=== PATIENT | female | born 1950 | race Caucasian/White ===

== ENCOUNTER → 2016-11-25 | Outpatient (CLI) | payer MEDICARE ==
[~2016-11-25] MED LIST: DIFL0.0512 LEFT EYE; HYDR-755 PO; LAMO25TA PO; NEPA0.3D LEFT EYE; OCUF0.3D LEFT EYE; SERO25TA PO; SERO50TA PO; TRAZ100T6 PO; VENL100T PO; VIGA0.5D LEFT EYE
[2016-11-25 13:59] LABS: BASOPHIL % 0.8 % (0.0-2.0); EOSINOPHIL # 0.3 TH/MM3 (0-0.4); EOSINOPHIL % 4.9 % (0.0-4.0); HEMATOCRIT 35.2 % (35.0-46.0); HEMO FLAGS DIFF FINAL; LYMPH % 31.7 % (9.0-44.0); LYMPHOCYTE # 1.6 TH/MM3 (1.0-4.8); MEAN CELL VOLUME 89.6 FL (80.0-100.0); MEAN CORPUSCULAR HEMOGLOBIN 29.9 PG (27.0-34.0); MEAN CORPUSCULAR HGB CONC 33.3 % (32.0-36.0); MONO % 5.8 % (0.0-8.0); NEUT % 56.8 % (16.0-70.0); PLATELET COUNT 207 TH/MM3 (150-450); RED BLOOD COUNT 3.93 MIL/MM3 (4.00-5.30); RED CELL DISTRIBUTION WIDTH 13.1 % (11.6-17.2); WHITE BLOOD COUNT 5.2 TH/MM3 (4.0-11.0)
--- NOTE | 2016-11-25 15:14 | EKG ---
Date Performed: 11/25/2016 Time Performed: 13:47:37 PTAGE: 66 years EKG: Sinus rhythm NORMAL ECG NO PREVIOUS TRACING DOCTOR: Danny Mejia Interpretating Date/Time 11/25/2016 15:13:14
== END ==
LOC: PHPRE 13:14
PROVIDERS: ATTEND Ophthalmology
DX: Z01.812 Encounter for preprocedural laboratory examination (principal); Z01.810 Encounter for preprocedural cardiovascular examination; H25.042 Posterior subcapsular polar age-related cataract, left eye
CPT/HCPCS: 36415; 85025; 93005

== ENCOUNTER → 2016-12-07 | Day surgery (SDC) | payer MEDICARE ==
[~2016-12-07] VITALS: Ht 160 cm; Wt 52.5 kg
[~2016-12-07] MED LIST changes: +CHLORHEXIDINE GLUCONATE 2 % 1 PACK (2 CLOTHS) TOPICAL PRN; +HYALURONIDASE/LIDOCAINE/EPINEPHRINE/BUPIVACAINE 4.5 ML SYR LEFT EYE ONE; +HYALURONIDASE/LIDOCAINE/EPINEPHRINE/BUPIVACAINE 4.5 ML SYR ONE; +HYALURONIDASE/LIDOCAINE/EPINEPHRINE/BUPIVACAINE 6 ML SYR LEFT EYE ONE; +HYALURONIDASE/LIDOCAINE/EPINEPHRINE/BUPIVACAINE 6 ML SYR ONE; +INSULIN HUMAN REGULAR 1,000 UNITS/10 ML VIAL SQ PRN; +LACTATED RINGER'S 1000 ML IV PRN; +METOPROLOL TARTRATE 25 MG TAB PO PRN; +POVIDONE IODINE 5% (ANTISEPSIS KIT) 4 APPLICATIONS EACH NARE PRN; +PROPOFOL 200 MG/20 ML AMP ONE; +SODIUM CHLORID 0.9% 500 ML IV PRN; +TOBRAMYCIN/DEXAMETHASONE OPTH OINT 3.5 GM TUBE ONE; +TRYPAN BLUE 0.5 ML OPHT DYE SYRINGE ONE
[2016-12-07 08:00] VITALS: BP 137/79; PULSE 74; RESP 16; TEMP 98.3; O2SAT 98
[2016-12-07] MEDS: TROPICAMIDE 1% OPHT SOLN 15 ML BTL LEFT EYE SCH ×3 (08:05→08:15)
[2016-12-07] MEDS: CYCLOPENTOLATE HCL 1% OPHT SOLN 2 ML BTL LEFT EYE SCH ×3 (08:05→08:15)
[2016-12-07] MEDS: TETRACAINE 0.5% OPTH SOLN 4 ML BTL LEFT EYE SCH ×3 (08:05→08:15)
[2016-12-07] MEDS: PHENYLEPHRINE HCL 10% OPTH SOLN 5 ML BTL LEFT EYE SCH ×3 (08:05→08:15)
[2016-12-07 08:10] VITALS: PULSE 74
[2016-12-07 08:40] VITALS: PULSE 75
--- NOTE | 2016-12-07 09:53 | PD.OP ---
Operative Report Date of Surgery: Dec 07, 2016 Preoperative Diagnosis: (1) Posterior subcapsular age-related cataract of left eye Postoperative Diagnosis: (1) Pseudophakia of left eye Procedure: phacoemulsification and intraocular lens implant left eye Anesthesia: MAC, retrobulbar block Surgeon: Mary Ellen Yarbrough Is Architect(s): none Operation and Findings: Patient was consented for surgery, given a retrobulbar block by anesthesia, and taken back to the operating room. She was prepped and draped in the usual sterile fashion for ophthalmic surgery. A wire lid speculum was placed in the left eye. A paracentesis incision was created at the 5 o'clock position on the limbus. Vision blue dye and viscoelastic was injected into the anterior chamber. The main incision was created at the 2 o'clock position on the limbus with a 2.4 mm keratome. A continuous curvilinear capsulorrhexis was made on the anterior lens capsule. Hydrodissection was used to separate the lens from the capsule. Phacoemulsification was used to remove the lens nucleus material. Irrigation and aspiration was used to remove the remaining cortical material. The lens implant ([id number] SN [id number]) was placed in the capsular bag. Viscoelastic was removed with irrigation and aspiration. The incisions were irrigated and found to be watertight. Tobradex ointment, a patch, and shield were placed on the left eye. The patient was sent to PACU in stable condition. Mary Ellen Yarbrough MD Dec 07, 2016 09:53
[2016-12-07 10:15] VITALS: BP 117/62; PULSE 73; RESP 16; TEMP 97.6; O2SAT 97
== END | disposition home or self-care (01) ==
LOC: PHSDC 07:45 → EDUNIT# 09:30
PROVIDERS: ATTEND Ophthalmology
DX: H25.042 Posterior subcapsular polar age-related cataract, left eye (principal); H35.30 Unspecified macular degeneration; N18.3 Chronic kidney disease, stage 3 (moderate); E78.5 Hyperlipidemia, unspecified; L68.9 Hypertrichosis, unspecified; H93.19 Tinnitus, unspecified ear
CPT/HCPCS: 00142; 66984; J7040; V2632

== ENCOUNTER 2017-09-02 14:10 | Emergency (ER) | payer MEDICARE ==
[~2017-09-02] VITALS: Ht 160 cm; Wt 50.0 kg
[~2017-09-02 14:10] MED LIST changes: -CHLORHEXIDINE GLUCONATE 2 % 1 PACK (2 CLOTHS) TOPICAL PRN; -HYALURONIDASE/LIDOCAINE/EPINEPHRINE/BUPIVACAINE 4.5 ML SYR LEFT EYE ONE; -HYALURONIDASE/LIDOCAINE/EPINEPHRINE/BUPIVACAINE 4.5 ML SYR ONE; -HYALURONIDASE/LIDOCAINE/EPINEPHRINE/BUPIVACAINE 6 ML SYR LEFT EYE ONE; -HYALURONIDASE/LIDOCAINE/EPINEPHRINE/BUPIVACAINE 6 ML SYR ONE; -INSULIN HUMAN REGULAR 1,000 UNITS/10 ML VIAL SQ PRN; -LACTATED RINGER'S 1000 ML IV PRN; -METOPROLOL TARTRATE 25 MG TAB PO PRN; -POVIDONE IODINE 5% (ANTISEPSIS KIT) 4 APPLICATIONS EACH NARE PRN; -PROPOFOL 200 MG/20 ML AMP ONE; -SODIUM CHLORID 0.9% 500 ML IV PRN; -TOBRAMYCIN/DEXAMETHASONE OPTH OINT 3.5 GM TUBE ONE; +TRAZ100T10 PO; -TRAZ100T6 PO; -TRYPAN BLUE 0.5 ML OPHT DYE SYRINGE ONE; -VIGA0.5D LEFT EYE
[2017-09-02 14:28] VITALS: BP 155/73; PULSE 93; RESP 17; TEMP 97.7; O2SAT 98
[2017-09-02 15:13] LABS: AUTOMATED NEUTROPHIL # 5.5 TH/MM3 (1.8-7.7); BASOPHIL # 0.1 TH/MM3 (0-0.2); BASOPHIL % 1.1 % (0.0-2.0); EOSINOPHIL # 0.3 TH/MM3 (0-0.4); EOSINOPHIL % 3.3 % (0.0-4.0); HEMATOCRIT 39.3 % (35.0-46.0); HEMOGLOBIN 13.2 GM/DL (11.6-15.3); LYMPH % 24.2 % (9.0-44.0); LYMPHOCYTE # 2.1 TH/MM3 (1.0-4.8); MEAN CELL VOLUME 90.6 FL (80.0-100.0); MEAN CORPUSCULAR HEMOGLOBIN 30.5 PG (27.0-34.0); MEAN CORPUSCULAR HGB CONC 33.6 % (32.0-36.0); MEAN PLATELET VOLUME 7.9 FL (7.0-11.0); MONO % 7.6 % (0.0-8.0); MONOCYTE # 0.7 TH/MM3 (0-0.9); NEUT % 63.8 % (16.0-70.0); PLATELET COUNT 234 TH/MM3 (150-450); RED BLOOD COUNT 4.34 MIL/MM3 (4.00-5.30); RED CELL DISTRIBUTION WIDTH 13.8 % (11.6-17.2); WHITE BLOOD COUNT 8.6 TH/MM3 (4.0-11.0)
[2017-09-02 15:26] LABS: BILIRUBIN, URINE NEG (NEG); BLOOD, URINE NEG (NEG); GLUCOSE,URINE NEG (NEG); HYALINE CAST, URINE 3 /lpf (RARE); KETONE, URINE NEG (NEG); MUCUS URINE FEW /lpf (OCC); NITRITE,URINE NEG (NEG); PH, URINE 5.5 (5.0-8.5); SQUAMOUS EPITHELIAL CELL URINE <1 /hpf (0-5); URINE COLOR YELLOW (YELLW/STRAW); URINE LEUKOCYTE ESTERASE NEG (NEG)
[2017-09-02 15:41] LABS: ALBUMIN 4.1 GM/DL (3.4-5.0); ALT (GPT) 19 U/L (10-53); AST (GOT) 22 U/L (15-37); BICARBONATE 25.7 MEQ/L (21.0-32.0); BLOOD UREA NITROGEN 30 MG/DL (7-18); CALCIUM 9.2 MG/DL (8.5-10.1); CHLORIDE 108 MEQ/L (98-107); CREATININE 1.36 MG/DL (0.50-1.00); GLOMERULAR FILTRATION RATE 39 ML/MIN (>89); GLUCOSE,RANDOM 104 MG/DL (74-106); SODIUM (NA) 141 MEQ/L (136-145)
[2017-09-02 15:43] LABS: ACETAMINOPHEN 77.6 MCG/ML (10.0-30.0); ALKALINE PHOSPHATASE 81 U/L (45-117); PROTHROMBIN TIME - PATIENT 9.8 SEC (9.8-11.6); TOTAL BILIRUBIN ADULT 0.3 MG/DL (0.2-1.0); TOTAL PROTEIN 8.1 GM/DL (6.4-8.2)
--- NOTE | 2017-09-02 16:39 | PD ---
HPI Chief Complaint: Psychiatric Symptoms Time Seen by Provider: 16:16 Travel History International Travel<30 days: No Contact w/Intl Traveler<30days: No Traveled to known affect area: No History of Present Illness HPI 66y female presents to the ED with suicidal ideations and says she took 10 tylenol this morning in an effort to harm herself. Says she 'has nothing left'. She blames her feelings on having a poor relationship with her son. Denies other ingestions. Says she has a previous OD attempt years ago. Says she has a history of 'generalized acute hypertrichosis', CKDIII, Bipolar disorder. Says she takes seroquel, Effexor, lamotrigine, hydroxyzine, and trazedone. Says she saw her psychiatrist this week and her seroquel dose was changed. Dr. Kulkarni is her primary care physisian. Last visit was months ago, according to pt. Denies fever, chills, chest pain, SOB, abdominal pain, nausea, vomiting, diarrhea. She has no other complaints today. PFSH Past Medical History Cancer: No Cardiovascular Problems: No Diabetes: No Endocrine: No Genitourinary: No Hepatitis: No Hiatal Hernia: No Immune Disorder: No Musculoskeletal: Yes (MULTIPLE FRACTURES ) Neurologic: No Psychiatric: Yes (BIPOLAR DISEASE, MDD) Reproductive: No Respiratory: No Thyroid Disease: No Tetanus Vaccination: > 5 Years Influenza Vaccination: No ?: Not Past Surgical History Abdominal Surgery: Yes ( X 2, APPENDECTOMY (THINKS IT OCCURRED WHEN SHE WAS YOUNG)) AICD: No Body Medical Devices: PINS LEFT FINGER Cardiac Surgery: No Ear Surgery: No Endocrine Surgery: No Eye Surgery: No Genitourinary Surgery: No Gynecologic Surgery: No Joint Replacement: No Oral Surgery: No Pacemaker: No Thoracic Surgery: No Other Surgery: Yes Social History Alcohol Use: No Tobacco Use: No Substance Use: Yes (MARIJUANA DAILY ) Allergies-Medications (Allergen,Severity, Reaction): Coded Allergies: No Known Allergies (Unverified Adverse Reaction, Unknown, 09/02/17) Reported Meds & Prescriptions Reported Meds & Active Scripts Active Reported Hydroxyzine HCl 10 Mg Tab 10 Mg PO HS PRN Seroquel (Quetiapine Fumarate) 50 Mg Tab 50 Mg PO DAILY Lamotrigine 25 Mg Tab 25 Mg PO DAILY Trazodone (Trazodone HCl) 100 Mg Tablet 100 Mg PO HS Effexor (Venlafaxine HCl) 100 Mg Tab 150 Mg PO DAILY Review of Systems Except as stated in HPI: all other systems reviewed are Neg Physical Exam Narrative GENERAL: WD, WN in NAD, easily arousal SKIN: Warm and dry. HEAD: Atraumatic. Normocephalic. EYES: Pupils equal and round. No scleral icterus. No injection or drainage. ENT: No nasal bleeding or discharge. Mucous membranes pink and moist. NECK: Trachea midline. No JVD. CARDIOVASCULAR: Regular rate and rhythm. RESPIRATORY: No accessory muscle use. Clear to auscultation. Breath sounds equal bilaterally. GASTROINTESTINAL: Abdomen soft, non-tender, nondistended. Hepatic and splenic margins not palpable. MUSCULOSKELETAL: Extremities without clubbing, cyanosis, or edema. No obvious deformities. NEUROLOGICAL: Awake and alert. No obvious cranial nerve deficits. Motor grossly within normal limits. Five out of 5 muscle strength in the arms and legs. Normal speech. PSYCHIATRIC: Appropriate mood and affect; insight and judgment normal. Data Data Last Documented VS Vital Signs Date Time Temp Pulse Resp B/P (MAP) Pulse Ox O2 Delivery O2 Flow Rate FiO2 09/03/17 11:09 67 15 115/66 (82) 99 09/03/17 08:57 97.8 Room Air Orders Orders Complete Blood Count With Diff (09/02/17 14:35) Comprehensive Metabolic Panel (09/02/17 14:35) Urinalysis - C+S If Indicated (09/02/17 14:35) Psych Screen (09/02/17 14:35) Drug Screen, Random Urine (09/02/17 14:35) Alcohol (Ethanol) (09/02/17 14:35) Salicylates (Aspirin) (09/02/17 14:35) Tylenol (Acetaminophen) (09/02/17 14:35) Prothrombin Time / Inr (Pt) (09/02/17 14:35) Call Poison Control (09/02/17 16:47) Sodium Chlor 0.9% 1000 Ml Inj (Ns 1000 M (09/02/17 17:00) Tylenol (Acetaminophen) (09/02/17 18:30) Salicylates (Aspirin) (09/02/17 18:30) Comprehensive Metabolic Panel (09/02/17 18:30) Electrocardiogram (09/02/17 ) Sodium Chlor 0.9% 1000 Ml Inj (Ns 1000 M (09/02/17 19:45) Diet Regular Basic (09/03/17 Breakfast) Ed Discharge Order (09/03/17 10:56) Labs Laboratory Tests Test 09/02/17 14:30 09/02/17 19:30 White Blood Count 8.6 TH/MM3 Red Blood Count 4.34 MIL/MM3 Hemoglobin 13.2 GM/DL Hematocrit 39.3 % Mean Corpuscular Volume 90.6 FL Mean Corpuscular Hemoglobin 30.5 PG Mean Corpuscular Hemoglobin Concent 33.6 % Red Cell Distribution Width 13.8 % Platelet Count 234 TH/MM3 Mean Platelet Volume 7.9 FL Neutrophils (%) (Auto) 63.8 % Lymphocytes (%) (Auto) 24.2 % Monocytes (%) (Auto) 7.6 % Eosinophils (%) (Auto) 3.3 % Basophils (%) (Auto) 1.1 % Neutrophils # (Auto) 5.5 TH/MM3 Lymphocytes # (Auto) 2.1 TH/MM3 Monocytes # (Auto) 0.7 TH/MM3 Eosinophils # (Auto) 0.3 TH/MM3 Basophils # (Auto) 0.1 TH/MM3 CBC Comment DIFF FINAL Differential Comment Prothrombin Time 9.8 SEC Prothromb Time International Ratio 1.0 RATIO Urine Color YELLOW Urine Turbidity CLEAR Urine pH 5.5 Urine Specific [place] 1.023 Urine Protein TRACE mg/dL Urine Glucose (UA) NEG mg/dL Urine Ketones NEG mg/dL Urine Occult Blood NEG Urine Nitrite NEG Urine Bilirubin NEG Urine Urobilinogen 2.0 MG/DL Urine Leukocyte Esterase NEG Urine RBC LESS THAN 1 /hpf Urine WBC 1 /hpf Urine Squamous Epithelial Cells <1 /hpf Urine Hyaline Casts 3 /lpf Urine Mucus FEW /lpf Microscopic Urinalysis Comment CULT NOT INDICATED Blood Urea Nitrogen 30 MG/DL 27 MG/DL Creatinine 1.36 MG/DL 1.37 MG/DL Random Glucose 104 MG/DL 73 MG/DL Total Protein 8.1 GM/DL 7.7 GM/DL Albumin 4.1 GM/DL 3.9 GM/DL Calcium Level 9.2 MG/DL 8.9 MG/DL Alkaline Phosphatase 81 U/L 79 U/L Aspartate Amino Transf (AST/SGOT) 22 U/L 19 U/L Alanine Aminotransferase (ALT/SGPT) 19 U/L 18 U/L Total Bilirubin 0.3 MG/DL 0.3 MG/DL Sodium Level 141 MEQ/L 141 MEQ/L Potassium Level 4.7 MEQ/L 4.4 MEQ/L Chloride Level 108 MEQ/L 109 MEQ/L Carbon Dioxide Level 25.7 MEQ/L 28.4 MEQ/L Anion Gap 7 MEQ/L 4 MEQ/L Estimat Glomerular Filtration Rate 39 ML/MIN 39 ML/MIN Salicylates Level 8.6 MG/DL 8.3 MG/DL Urine Opiates Screen NEG Acetaminophen Level 77.6 MCG/ML 13.6 MCG/ML Urine Barbiturates Screen NEG Urine Amphetamines Screen NEG Urine Benzodiazepines Screen NEG Urine Cocaine Screen NEG Urine Cannabinoids Screen POS Ethyl Alcohol Level LESS THAN 3 MG/DL MDM Medical Decision Making Medical Screen Exam Complete: Yes Emergency Medical Condition: Yes Differential Diagnosis polysubstance use, substance abuse, suicidal ideations, overdose Narrative Course 66y female presents to the ED with suicidal ideations and says she took 10 tylenol this morning in an effort to harm herself. Says she 'has nothing left'. She blames her feelings on having a poor relationship with her son. Denies other ingestions. Says she does smoke marijuana. Says she has a previous OD attempt years ago. Says she has a history of 'generalized acute hypertrichosis' , CKDIII, Bipolar disorder. Says she takes seroquel, Effexor, lamotrigine, hydroxyzine, and trazedone. Says she saw her psychiatrist this week and her seroquel dose was changed. Dr. Kulkarni is her primary care physisian. Last visit was months ago, according to pt. Denies fever, chills, chest pain, SOB, abdominal pain, nausea, vomiting, diarrhea. She has no other complaints today. Vitals stable. UDS positive for acetaminophen, consistent with patients history. Nomogram indicates an 8hr post ingestion time. UDS also positive for cannabanoids. Labs otherwise appear stable. SADAF Garcia contacted poison control. They recommended a recheck of Tylenol, salicylates, and a CMP at 1830 and monitor for stability. Psych consult pending. Pt sent to D pod for further monitoring. Spoke with YAN Schwartz who will resume care of the this patient. Diagnosis Primary Impression: Intentional acetaminophen overdose Qualified Codes: T39.1X2A - Poisoning by 4-aminophenol derivatives, intentional self-harm, initial encounter Justice,Adelia ALEXANDER Sep 02, 2017 16:39
[2017-09-02] MEDS ORDERED: SODIUM CHLOR 0.9% 1000 ML INJ 1,000 ML IV ONE ×2 (17:00→19:45)
[2017-09-02 19:34] VITALS: BP 166/70; PULSE 68; RESP 18; O2SAT 99
[2017-09-02 20:30] LABS: ALBUMIN 3.9 GM/DL (3.4-5.0); ALT (GPT) 18 U/L (10-53); AST (GOT) 19 U/L (15-37); BICARBONATE 28.4 MEQ/L (21.0-32.0); BLOOD UREA NITROGEN 27 MG/DL (7-18); CALCIUM 8.9 MG/DL (8.5-10.1); CHLORIDE 109 MEQ/L (98-107); CREATININE 1.37 MG/DL (0.50-1.00); GLOMERULAR FILTRATION RATE 39 ML/MIN (>89); GLUCOSE,RANDOM 73 MG/DL (74-106); SODIUM (NA) 141 MEQ/L (136-145)
[2017-09-02 20:33] LABS: ACETAMINOPHEN 13.6 MCG/ML (10.0-30.0); ALKALINE PHOSPHATASE 79 U/L (45-117); TOTAL BILIRUBIN ADULT 0.3 MG/DL (0.2-1.0); TOTAL PROTEIN 7.7 GM/DL (6.4-8.2)
--- NOTE | 2017-09-02 20:37 | PD ---
Physical Exam Date Seen by Provider: Sep 02, 2017 Time Seen by Provider: 20:35 Narrative For full history and physical examination please see previous providers note. Data Data Last Documented VS Vital Signs Date Time Temp Pulse Resp B/P (MAP) Pulse Ox O2 Delivery O2 Flow Rate FiO2 09/02/17 19:34 68 18 166/70 (102) 99 Room Air 09/02/17 14:28 97.7 Orders Orders Complete Blood Count With Diff (09/02/17 14:35) Comprehensive Metabolic Panel (09/02/17 14:35) Urinalysis - C+S If Indicated (09/02/17 14:35) Psych Screen (09/02/17 14:35) Drug Screen, Random Urine (09/02/17 14:35) Alcohol (Ethanol) (09/02/17 14:35) Salicylates (Aspirin) (09/02/17 14:35) Tylenol (Acetaminophen) (09/02/17 14:35) Prothrombin Time / Inr (Pt) (09/02/17 14:35) Call Poison Control (09/02/17 16:47) Sodium Chlor 0.9% 1000 Ml Inj (Ns 1000 M (09/02/17 17:00) Tylenol (Acetaminophen) (09/02/17 18:30) Salicylates (Aspirin) (09/02/17 18:30) Comprehensive Metabolic Panel (09/02/17 18:30) Electrocardiogram (09/02/17 ) Sodium Chlor 0.9% 1000 Ml Inj (Ns 1000 M (09/02/17 19:45) Labs Laboratory Tests Test 09/02/17 14:30 09/02/17 19:30 White Blood Count 8.6 TH/MM3 Red Blood Count 4.34 MIL/MM3 Hemoglobin 13.2 GM/DL Hematocrit 39.3 % Mean Corpuscular Volume 90.6 FL Mean Corpuscular Hemoglobin 30.5 PG Mean Corpuscular Hemoglobin Concent 33.6 % Red Cell Distribution Width 13.8 % Platelet Count 234 TH/MM3 Mean Platelet Volume 7.9 FL Neutrophils (%) (Auto) 63.8 % Lymphocytes (%) (Auto) 24.2 % Monocytes (%) (Auto) 7.6 % Eosinophils (%) (Auto) 3.3 % Basophils (%) (Auto) 1.1 % Neutrophils # (Auto) 5.5 TH/MM3 Lymphocytes # (Auto) 2.1 TH/MM3 Monocytes # (Auto) 0.7 TH/MM3 Eosinophils # (Auto) 0.3 TH/MM3 Basophils # (Auto) 0.1 TH/MM3 CBC Comment DIFF FINAL Differential Comment Prothrombin Time 9.8 SEC Prothromb Time International Ratio 1.0 RATIO Urine Color YELLOW Urine Turbidity CLEAR Urine pH 5.5 Urine Specific [place] 1.023 Urine Protein TRACE mg/dL Urine Glucose (UA) NEG mg/dL Urine Ketones NEG mg/dL Urine Occult Blood NEG Urine Nitrite NEG Urine Bilirubin NEG Urine Urobilinogen 2.0 MG/DL Urine Leukocyte Esterase NEG Urine RBC LESS THAN 1 /hpf Urine WBC 1 /hpf Urine Squamous Epithelial Cells <1 /hpf Urine Hyaline Casts 3 /lpf Urine Mucus FEW /lpf Microscopic Urinalysis Comment CULT NOT INDICATED Blood Urea Nitrogen 30 MG/DL 27 MG/DL Creatinine 1.36 MG/DL 1.37 MG/DL Random Glucose 104 MG/DL 73 MG/DL Total Protein 8.1 GM/DL 7.7 GM/DL Albumin 4.1 GM/DL 3.9 GM/DL Calcium Level 9.2 MG/DL 8.9 MG/DL Alkaline Phosphatase 81 U/L 79 U/L Aspartate Amino Transf (AST/SGOT) 22 U/L 19 U/L Alanine Aminotransferase (ALT/SGPT) 19 U/L 18 U/L Total Bilirubin 0.3 MG/DL 0.3 MG/DL Sodium Level 141 MEQ/L 141 MEQ/L Potassium Level 4.7 MEQ/L 4.4 MEQ/L Chloride Level 108 MEQ/L 109 MEQ/L Carbon Dioxide Level 25.7 MEQ/L 28.4 MEQ/L Anion Gap 7 MEQ/L 4 MEQ/L Estimat Glomerular Filtration Rate 39 ML/MIN 39 ML/MIN Salicylates Level 8.6 MG/DL 8.3 MG/DL Urine Opiates Screen NEG Acetaminophen Level 77.6 MCG/ML 13.6 MCG/ML Urine Barbiturates Screen NEG Urine Amphetamines Screen NEG Urine Benzodiazepines Screen NEG Urine Cocaine Screen NEG Urine Cannabinoids Screen POS Ethyl Alcohol Level LESS THAN 3 MG/DL [facility] Medical Record Reviewed: Yes Supervised Visit with LAURA: No Interpretation(s) Laboratory Tests Test 09/02/17 14:30 09/02/17 19:30 White Blood Count 8.6 TH/MM3 Red Blood Count 4.34 MIL/MM3 Hemoglobin 13.2 GM/DL Hematocrit 39.3 % Mean Corpuscular Volume 90.6 FL Mean Corpuscular Hemoglobin 30.5 PG Mean Corpuscular Hemoglobin Concent 33.6 % Red Cell Distribution Width 13.8 % Platelet Count 234 TH/MM3 Mean Platelet Volume 7.9 FL Neutrophils (%) (Auto) 63.8 % Lymphocytes (%) (Auto) 24.2 % Monocytes (%) (Auto) 7.6 % Eosinophils (%) (Auto) 3.3 % Basophils (%) (Auto) 1.1 % Neutrophils # (Auto) 5.5 TH/MM3 Lymphocytes # (Auto) 2.1 TH/MM3 Monocytes # (Auto) 0.7 TH/MM3 Eosinophils # (Auto) 0.3 TH/MM3 Basophils # (Auto) 0.1 TH/MM3 CBC Comment DIFF FINAL Differential Comment Prothrombin Time 9.8 SEC Prothromb Time International Ratio 1.0 RATIO Urine Color YELLOW Urine Turbidity CLEAR Urine pH 5.5 Urine Specific [place] 1.023 Urine Protein TRACE mg/dL Urine Glucose (UA) NEG mg/dL Urine Ketones NEG mg/dL Urine Occult Blood NEG Urine Nitrite NEG Urine Bilirubin NEG Urine Urobilinogen 2.0 MG/DL Urine Leukocyte Esterase NEG Urine RBC LESS THAN 1 /hpf Urine WBC 1 /hpf Urine Squamous Epithelial Cells <1 /hpf Urine Hyaline Casts 3 /lpf Urine Mucus FEW /lpf Microscopic Urinalysis Comment CULT NOT INDICATED Blood Urea Nitrogen 30 MG/DL 27 MG/DL Creatinine 1.36 MG/DL 1.37 MG/DL Random Glucose 104 MG/DL 73 MG/DL Total Protein 8.1 GM/DL 7.7 GM/DL Albumin 4.1 GM/DL 3.9 GM/DL Calcium Level 9.2 MG/DL 8.9 MG/DL Alkaline Phosphatase 81 U/L 79 U/L Aspartate Amino Transf (AST/SGOT) 22 U/L 19 U/L Alanine Aminotransferase (ALT/SGPT) 19 U/L 18 U/L Total Bilirubin 0.3 MG/DL 0.3 MG/DL Sodium Level 141 MEQ/L 141 MEQ/L Potassium Level 4.7 MEQ/L 4.4 MEQ/L Chloride Level 108 MEQ/L 109 MEQ/L Carbon Dioxide Level 25.7 MEQ/L 28.4 MEQ/L Anion Gap 7 MEQ/L 4 MEQ/L Estimat Glomerular Filtration Rate 39 ML/MIN 39 ML/MIN Salicylates Level 8.6 MG/DL 8.3 MG/DL Urine Opiates Screen NEG Acetaminophen Level 77.6 MCG/ML 13.6 MCG/ML Urine Barbiturates Screen NEG Urine Amphetamines Screen NEG Urine Benzodiazepines Screen NEG Urine Cocaine Screen NEG Urine Cannabinoids Screen POS Ethyl Alcohol Level LESS THAN 3 MG/DL Vital Signs Date Time Temp Pulse Resp B/P (MAP) Pulse Ox O2 Delivery O2 Flow Rate FiO2 09/02/17 19:34 68 18 166/70 (102) 99 Room Air 09/02/17 14:28 97.7 93 17 155/73 (100) 98 Narrative Course Patient is a 66-year-old female that presented to the emergency department for psychiatric evaluation under [place] act. Patient reportedly took 10 Tylenol this morning. Initial acetaminophen level was 77.6 at 1430, repeat level at 1930 is 13.6. Urine drug screen is positive for marijuana. Alcohol level, salicylates are unremarkable. Chemistry with BUN and creatinine of 27/1.37 after IV fluid resuscitation. CBC with no acute findings. Urinalysis unremarkable. EKG shows sinus rhythm with a ventricular rate of 64. This was reviewed by my attending physician. Patient has received a total of 2 L of IV fluids. Patient is medically clear for psychiatric evaluation at this time. Diagnosis Primary Impression: Medical clearance for psychiatric admission Additional Impression: Intentional acetaminophen overdose Qualified Codes: T39.1X2A - Poisoning by 4-aminophenol derivatives, intentional self-harm, initial encounter Condition: Stable DeondreNatalieHansa [facility] Sep 02, 2017 20:37
[2017-09-03 02:42] VITALS: BP 109/59; PULSE 69; RESP 17; O2SAT 99
[2017-09-03 08:57] VITALS: BP 112/63; PULSE 72; RESP 16; TEMP 97.8; O2SAT 97
--- NOTE | 2017-09-03 10:15 | PD ---
History of Present Illness Chief Complaint: Psychiatric Symptoms Time Seen by Provider: 10:11 Travel History International Travel<30 Days: No Contact w/Intl Traveler<30days: No Known affected area: No Legal Status Legal Status: Heath Act Heath Act Signed By: Rios Gong History of Present Illness: History of Present Illness HPI 66 year old, female with history of bipolar disorder who presents to the ED under a Heath act initiated by law enforcement. The Heath act alleges that the patient reported she wanted to end her life and attempted to commit suicide by taking 10 acetaminophen tablets. The patient was talking with a friend who called the police after she divulged that information to him. The patient upon presentation to the ED had an acetaminophen level of 77.6 which later trended down to 13. She was observed in a secure environment and presented no further suicidality and no behavior dysregulation. EMR is reviewed no previous contact with [facility] psychiatry. Current toxicology is positive for cannabinoids. Patient is seen in Main ED. She was found talking with a another visitor here in the emergency department. The patient is alert and oriented. Her speech is clear and logical. Affect is tearful at times. There is no evidence of any hallucinations, delusions or paranoia. Mood is depressed. She is denying current suicidal or homicidal ideation, intent or plan. In terms of incident she relates that she had been feeling stressed over having lent her son $20,000 and he is refusing to pay her. She goes on to state that she had been on the phone with him trying to get him to negotiate and that when he refused to pay her she impulsively took the overdose. She now states that she spoke with her daughter who offered her a different perspective of the situation and she is feeling better. She states that she is seeing Dr. Edwards as outpatient psychiatrist. She reports medication compliance and last saw him 1 week ago. The patient is requesting to be discharged and states that she has support from her daughter as well as from her recovery community. Telephone call to her daughter Latoya at [phone].She spoke with the patient last night. She has no concerns for her mother's safety if she were to be discharged form the ED. [facility] [place] Past Medical History Cancer: No Cardiovascular Problems: No Diabetes: No Endocrine: No Genitourinary: No Hepatitis: No Hiatal Hernia: No Immune Disorder: No Musculoskeletal: Yes (MULTIPLE FRACTURES ) Neurologic: No Psychiatric: Yes (BIPOLAR DISEASE, MDD) Reproductive: No Respiratory: No Thyroid Disease: No Tetanus Vaccination: > 5 Years Influenza Vaccination: No ?: Not Past Surgical History Abdominal Surgery: Yes ( X 2, APPENDECTOMY (THINKS IT OCCURRED WHEN SHE WAS YOUNG)) AICD: No Body Medical Devices: PINS LEFT FINGER Cardiac Surgery: No Ear Surgery: No Endocrine Surgery: No Eye Surgery: No Genitourinary Surgery: No Gynecologic Surgery: No Joint Replacement: No Oral Surgery: No Pacemaker: No Thoracic Surgery: No Other Surgery: Yes Psychiatric History Psychiatric History Hx Psychiatric Treatment: Began treatment for bipolar disorder approximately 30 years ago previously. Has had multiple hospitalizations with the last one being approximately several years ago. She reports that she has had at least 10 suicidal gestures since age 31 years. Currently under the care of Dr. Edwards. History of Inpatient Treatment: Yes Guns or firearms in home: No Social History Born and raised in [facility]. Divorce. 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 She had an early penitentiary due to mental disability. She has 2 children a son and a daughter. 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) Hx Tobacco Use: No Hx Substance Use: Yes (MARIJUANA DAILY ) Substance Use Type: Alcohol, Marijuana Hx of Substance Use Treatment: Yes Family Psychiatric History Father and sister with history of bipolar disorder Allergies-Medications (Allergen,Severity, Reaction): Coded Allergies: No Known Allergies (Unverified Adverse Reaction, Unknown, 09/02/17) Reported Meds & Prescriptions Reported Meds & Active Scripts Active Reported Hydroxyzine HCl 10 Mg Tab 10 Mg PO HS PRN Seroquel (Quetiapine Fumarate) 50 Mg Tab 50 Mg PO DAILY Lamotrigine 25 Mg Tab 25 Mg PO DAILY Trazodone (Trazodone HCl) 100 Mg Tablet 100 Mg PO HS Effexor (Venlafaxine HCl) 100 Mg Tab 150 Mg PO DAILY Review of Systems Integumentary: COMPLAINS OF: Pruritus Psychiatric: COMPLAINS OF: Depression Mental Status Examination Appearance: Appropriate Consciousness: Alert Orientation: x4 Motor Activity: Normal gait Speech: Unremarkable Language: Adequate Fund of Knowledge: Adequate Attention and Concentration: Adequate Memory: Unremarkable Mood: Sad Affect: Appropriate Thought Process & Associations: Intact, Logical, Goal directed Thought Content: Appropriate Hallucination Type: None Delusion Type: None Suicidal Ideation: No Suicidal Plan: No Suicidal Intention: No Homicidal Ideation: No Homicidal Plan: No Homicidal Intention: No Judgment: Impulsive MDM Medical Decision Making Medical Record Reviewed: Yes Assessment/Plan 66 year old, female with history of bipolar disorder who presents to the ED under a Heath act initiated by law enforcement. The Heath act alleges that the patient reported she wanted to end her life and attempted to commit suicide by taking 10 acetaminophen tablets. The patient was talking with a friend who called the police after she divulged that information to him. The patient upon presentation to the ED had an acetaminophen level of 77.6 which later trended down to 13. She was observed in a secure environment and presented no further suicidality and no behavior dysregulation. When she is evaluated at the patient contracts for safety and has adequate protective factors in place. She is requesting to be discharged and at this time does not meet criteria for the Heath act. I have spoken with her daughter who has no concerns if she is discharged from the ED. The patient is provided with psychoeducation and support. I have recommended an [facility] support groups as well as [facility] support group. She contracts for safety and has a general safety plan and agrees to return to the ED if there are any changes or concerns. Orders Orders Complete Blood Count With Diff (09/02/17 14:35) Comprehensive Metabolic Panel (09/02/17 14:35) Urinalysis - C+S If Indicated (09/02/17 14:35) Psych Screen (09/02/17 14:35) Drug Screen, Random Urine (09/02/17 14:35) Alcohol (Ethanol) (09/02/17 14:35) Salicylates (Aspirin) (09/02/17 14:35) Tylenol (Acetaminophen) (09/02/17 14:35) Prothrombin Time / Inr (Pt) (09/02/17 14:35) Call Poison Control (09/02/17 16:47) Sodium Chlor 0.9% 1000 Ml Inj (Ns 1000 M (09/02/17 17:00) Tylenol (Acetaminophen) (09/02/17 18:30) Salicylates (Aspirin) (09/02/17 18:30) Comprehensive Metabolic Panel (09/02/17 18:30) Electrocardiogram (09/02/17 ) Sodium Chlor 0.9% 1000 Ml Inj (Ns 1000 M (09/02/17 19:45) Diet Regular Basic (09/03/17 Breakfast) Results Vital Signs Date Time Temp Pulse Resp B/P (MAP) Pulse Ox O2 Delivery O2 Flow Rate FiO2 09/03/17 08:57 97.8 72 16 112/63 (79) 97 Room Air 09/03/17 02:42 69 17 109/59 (76) 99 Room Air 09/02/17 19:34 68 18 166/70 (102) 99 Room Air 09/02/17 14:28 97.7 93 17 155/73 (100) 98 Laboratory Tests Test 09/02/17 14:30 09/02/17 19:30 White Blood Count 8.6 Red Blood Count 4.34 Hemoglobin 13.2 Hematocrit 39.3 Mean Corpuscular Volume 90.6 Mean Corpuscular Hemoglobin 30.5 Mean Corpuscular Hemoglobin Concent 33.6 Red Cell Distribution Width 13.8 Platelet Count 234 Mean Platelet Volume 7.9 Neutrophils (%) (Auto) 63.8 Lymphocytes (%) (Auto) 24.2 Monocytes (%) (Auto) 7.6 Eosinophils (%) (Auto) 3.3 Basophils (%) (Auto) 1.1 Neutrophils # (Auto) 5.5 Lymphocytes # (Auto) 2.1 Monocytes # (Auto) 0.7 Eosinophils # (Auto) 0.3 Basophils # (Auto) 0.1 CBC Comment DIFF FINAL Differential Comment Prothrombin Time 9.8 Prothromb Time International Ratio 1.0 Urine Color YELLOW Urine Turbidity CLEAR Urine pH 5.5 Urine Specific [place] 1.023 Urine Protein TRACE Urine Glucose (UA) NEG Urine Ketones NEG Urine Occult Blood NEG Urine Nitrite NEG Urine Bilirubin NEG Urine Urobilinogen 2.0 Urine Leukocyte Esterase NEG Urine RBC LESS THAN 1 Urine WBC 1 Urine Squamous Epithelial Cells <1 Urine Hyaline Casts 3 Urine Mucus FEW Microscopic Urinalysis Comment CULT NOT INDICATED Blood Urea Nitrogen 30 27 Creatinine 1.36 1.37 Random Glucose 104 73 Total Protein 8.1 7.7 Albumin 4.1 3.9 Calcium Level 9.2 8.9 Alkaline Phosphatase 81 79 Aspartate Amino Transf (AST/SGOT) 22 19 Alanine Aminotransferase (ALT/SGPT) 19 18 Total Bilirubin 0.3 0.3 Sodium Level 141 141 Potassium Level 4.7 4.4 Chloride Level 108 109 Carbon Dioxide Level 25.7 28.4 Anion Gap 7 4 Estimat Glomerular Filtration Rate 39 39 Salicylates Level 8.6 8.3 Urine Opiates Screen NEG Acetaminophen Level 77.6 13.6 Urine Barbiturates Screen NEG Urine Amphetamines Screen NEG Urine Benzodiazepines Screen NEG Urine Cocaine Screen NEG Urine Cannabinoids Screen POS Ethyl Alcohol Level LESS THAN 3 Diagnosis Primary Impression: Intentional acetaminophen overdose Additional Impression: Bipolar disorder Psychiatrically Cleared: Yes Med/ Other Pt Specific Info: No Change to Meds Disposition: 01 DISCHARGE HOME Condition: Stable Problem Qualifiers Primary Impression: Intentional acetaminophen overdose Qualified Codes: T39.1X2A - Poisoning by 4-aminophenol derivatives, intentional self-harm, initial encounter Additional Impression: Bipolar disorder Qualified Codes: F31.31 - Bipolar disorder, current episode depressed, mild HernadezIvana perrin [facility] Sep 03, 2017 10:15
--- NOTE | 2017-09-03 10:56 | PD ---
Physical Exam Time Seen by Provider: 10:54 YAN Bellamy has evaluated patient, lifted the Heath act and cleared the patient for discharge. Data Data Last Documented VS Vital Signs Date Time Temp Pulse Resp B/P (MAP) Pulse Ox O2 Delivery O2 Flow Rate FiO2 09/03/17 08:57 97.8 72 16 112/63 (79) 97 Room Air Orders Orders Complete Blood Count With Diff (09/02/17 14:35) Comprehensive Metabolic Panel (09/02/17 14:35) Urinalysis - C+S If Indicated (09/02/17 14:35) Psych Screen (09/02/17 14:35) Drug Screen, Random Urine (09/02/17 14:35) Alcohol (Ethanol) (09/02/17 14:35) Salicylates (Aspirin) (09/02/17 14:35) Tylenol (Acetaminophen) (09/02/17 14:35) Prothrombin Time / Inr (Pt) (09/02/17 14:35) Call Poison Control (09/02/17 16:47) Sodium Chlor 0.9% 1000 Ml Inj (Ns 1000 M (09/02/17 17:00) Tylenol (Acetaminophen) (09/02/17 18:30) Salicylates (Aspirin) (09/02/17 18:30) Comprehensive Metabolic Panel (09/02/17 18:30) Electrocardiogram (09/02/17 ) Sodium Chlor 0.9% 1000 Ml Inj (Ns 1000 M (09/02/17 19:45) Diet Regular Basic (09/03/17 Breakfast) Labs Laboratory Tests Test 09/02/17 14:30 09/02/17 19:30 White Blood Count 8.6 TH/MM3 Red Blood Count 4.34 MIL/MM3 Hemoglobin 13.2 GM/DL Hematocrit 39.3 % Mean Corpuscular Volume 90.6 FL Mean Corpuscular Hemoglobin 30.5 PG Mean Corpuscular Hemoglobin Concent 33.6 % Red Cell Distribution Width 13.8 % Platelet Count 234 TH/MM3 Mean Platelet Volume 7.9 FL Neutrophils (%) (Auto) 63.8 % Lymphocytes (%) (Auto) 24.2 % Monocytes (%) (Auto) 7.6 % Eosinophils (%) (Auto) 3.3 % Basophils (%) (Auto) 1.1 % Neutrophils # (Auto) 5.5 TH/MM3 Lymphocytes # (Auto) 2.1 TH/MM3 Monocytes # (Auto) 0.7 TH/MM3 Eosinophils # (Auto) 0.3 TH/MM3 Basophils # (Auto) 0.1 TH/MM3 CBC Comment DIFF FINAL Differential Comment Prothrombin Time 9.8 SEC Prothromb Time International Ratio 1.0 RATIO Urine Color YELLOW Urine Turbidity CLEAR Urine pH 5.5 Urine Specific [place] 1.023 Urine Protein TRACE mg/dL Urine Glucose (UA) NEG mg/dL Urine Ketones NEG mg/dL Urine Occult Blood NEG Urine Nitrite NEG Urine Bilirubin NEG Urine Urobilinogen 2.0 MG/DL Urine Leukocyte Esterase NEG Urine RBC LESS THAN 1 /hpf Urine WBC 1 /hpf Urine Squamous Epithelial Cells <1 /hpf Urine Hyaline Casts 3 /lpf Urine Mucus FEW /lpf Microscopic Urinalysis Comment CULT NOT INDICATED Blood Urea Nitrogen 30 MG/DL 27 MG/DL Creatinine 1.36 MG/DL 1.37 MG/DL Random Glucose 104 MG/DL 73 MG/DL Total Protein 8.1 GM/DL 7.7 GM/DL Albumin 4.1 GM/DL 3.9 GM/DL Calcium Level 9.2 MG/DL 8.9 MG/DL Alkaline Phosphatase 81 U/L 79 U/L Aspartate Amino Transf (AST/SGOT) 22 U/L 19 U/L Alanine Aminotransferase (ALT/SGPT) 19 U/L 18 U/L Total Bilirubin 0.3 MG/DL 0.3 MG/DL Sodium Level 141 MEQ/L 141 MEQ/L Potassium Level 4.7 MEQ/L 4.4 MEQ/L Chloride Level 108 MEQ/L 109 MEQ/L Carbon Dioxide Level 25.7 MEQ/L 28.4 MEQ/L Anion Gap 7 MEQ/L 4 MEQ/L Estimat Glomerular Filtration Rate 39 ML/MIN 39 ML/MIN Salicylates Level 8.6 MG/DL 8.3 MG/DL Urine Opiates Screen NEG Acetaminophen Level 77.6 MCG/ML 13.6 MCG/ML Urine Barbiturates Screen NEG Urine Amphetamines Screen NEG Urine Benzodiazepines Screen NEG Urine Cocaine Screen NEG Urine Cannabinoids Screen POS Ethyl Alcohol Level LESS THAN 3 MG/DL MDM Supervised Visit with LAURA: No Narrative Course YAN Heath has evaluated patient, lifted the Heath act and cleared the patient for discharge. Patient contracts safety. Denies suicidal or homicidal ideations. Patient will be provided community resource packet to EDITH for follow-up. Has friends and family for support. Patient was medically cleared by alternate provider prior to psych screening. Patient has been evaluated by psychiatry and and is now cleared for discharge. Diagnosis Primary Impression: Bipolar disorder Additional Impression: Intentional acetaminophen overdose Qualified Codes: T39.1X2A - Poisoning by 4-aminophenol derivatives, intentional self-harm, initial encounter Referrals: EMMANUEL (Out patient) [facility] Primary Care Physician Psychiatrist Steffi BENITEZ [facility] Patient Instructions: Acetaminophen Overdose (ED), Bipolar Disorder (ED), General Instructions Additional Instruction: Contract safety to your self and others Follow-up with psychiatry Follow-up with primary care provider Follow-up with Bassam Schultz Return to the emergency department immediately with worsening of symptoms Med/Other Pt SpecificInfo: No Change to Meds, No Meds Exist/No RX given Disposition: 01 DISCHARGE HOME Condition: Stable Lana Ordoñez PROGRAM REP Sep 03, 2017 10:56
[2017-09-03 11:09] VITALS: BP 115/66
--- NOTE | 2017-09-03 16:55 | EKG ---
Date Performed: 09/02/2017 Time Performed: 18:58:24 PTAGE: 66 years EKG: Sinus rhythm Since the previous tracing, no significant change noted NORMAL ECG NO PREVIOUS TRACING DOCTOR: Xavi Johnson Interpretating Date/Time 09/03/2017 16:54:41
== END 2017-09-03 11:11 | disposition home or self-care (01) ==
LOC: NEPD 14:10
DX: T39.1X2A Poisoning by 4-Aminophenol derivatives, intentional self-harm, initial encounter (principal); F31.9 Bipolar disorder, unspecified; F12.10 Cannabis abuse, uncomplicated; F34.81 Disruptive mood dysregulation disorder; Z79.899 Other long term (current) drug therapy
CPT/HCPCS: 80053; 80307; 81001; 85025; 85610; 93005; 96360; 96361; 99284; J7030

== ENCOUNTER 2017-09-28 17:41 | Inpatient (IN) | payer OTHER, MEDICARE ==
[~2017-09-28 17:41] MED LIST changes: -DIFL0.0512 LEFT EYE; -NEPA0.3D LEFT EYE; -OCUF0.3D LEFT EYE; -SERO25TA PO
[2017-09-28 17:48] VITALS: BP 190/81; PULSE 93; RESP 20; TEMP 98.3; O2SAT 98
[2017-09-28] MEDS ORDERED: SERO25TA PO (18:08)
[2017-09-28 18:22] LABS: AUTOMATED NEUTROPHIL # 4.9 TH/MM3 (1.8-7.7); BASOPHIL # 0.1 TH/MM3 (0-0.2); BASOPHIL % 0.8 % (0.0-2.0); EOSINOPHIL # 0.2 TH/MM3 (0-0.4); EOSINOPHIL % 2.2 % (0.0-4.0); HEMATOCRIT 36.6 % (35.0-46.0); HEMOGLOBIN 12.6 GM/DL (11.6-15.3); LYMPH % 23.9 % (9.0-44.0); LYMPHOCYTE # 1.7 TH/MM3 (1.0-4.8); MEAN CELL VOLUME 89.9 FL (80.0-100.0); MEAN CORPUSCULAR HEMOGLOBIN 30.9 PG (27.0-34.0); MEAN CORPUSCULAR HGB CONC 34.4 % (32.0-36.0); MEAN PLATELET VOLUME 7.7 FL (7.0-11.0); MONO % 6.1 % (0.0-8.0); MONOCYTE # 0.4 TH/MM3 (0-0.9); PLATELET COUNT 202 TH/MM3 (150-450); RED BLOOD COUNT 4.08 MIL/MM3 (4.00-5.30); RED CELL DISTRIBUTION WIDTH 14.1 % (11.6-17.2); WHITE BLOOD COUNT 7.3 TH/MM3 (4.0-11.0)
[2017-09-28 18:44] LABS: ALT (GPT) 18 U/L (10-53); AST (GOT) 20 U/L (15-37); BICARBONATE 23.1 MEQ/L (21.0-32.0); BLOOD UREA NITROGEN 28 MG/DL (7-18); CALCIUM 8.8 MG/DL (8.5-10.1); CHLORIDE 107 MEQ/L (98-107); CREATININE 1.26 MG/DL (0.50-1.00); GLOMERULAR FILTRATION RATE 43 ML/MIN (>89); GLUCOSE,RANDOM 115 MG/DL (74-106); SODIUM (NA) 138 MEQ/L (136-145)
[2017-09-28 18:54] LABS: ALKALINE PHOSPHATASE 75 U/L (45-117); TOTAL BILIRUBIN ADULT 0.3 MG/DL (0.2-1.0); TOTAL PROTEIN 7.9 GM/DL (6.4-8.2)
--- NOTE | 2017-09-28 19:15 | PD ---
HPI Chief Complaint: Psychiatric Symptoms Time Seen by Provider: 17:54 Travel History International Travel<30 days: No Contact w/Intl Traveler<30days: No Traveled to known affect area: No History of Present Illness HPI 66-year-old female that presents to the ED for evaluation of psychiatric illness. Patient comes here for evaluation of depression and bipolar disease. Per patient she has been having worsening symptoms for the past 2 months. Per patient she has been compliant with her medications but her symptoms continue. Per patient today she actually went to see her psychiatrist Dr. Edwards who wanted the patient to come here to get admitted for stabilization. Per patient she does have suicidal ideation and has attempted in the past to end her life by overdose. She states that she is going through a lot mentally and is giving her a lot of stress. Whenever we talked about anything for her depression she starts crying hysterically. She denies any other medical issues at this time. No allergies to medication. No chest pain or shortness of breath. No urinary bowel movement issues. No fevers chills or sweats. No other medical issues. Symptoms appear to be ongoing for 2 months worse the past couple of days. PFSH Past Medical History Bipolar Disorder: Yes Anxiety: Yes Depression: Yes Cancer: No Cardiovascular Problems: No Diabetes: No Endocrine: No Genitourinary: Yes (stage 3 kidney failure) Hepatitis: No Hiatal Hernia: No Immune Disorder: No Musculoskeletal: Yes (MULTIPLE FRACTURES ) Neurologic: No Psychiatric: Yes (BIPOLAR DISEASE, MDD) Reproductive: No Respiratory: No Thyroid Disease: No Influenza Vaccination: No Menopausal: Yes Tubal Ligation: Yes Past Surgical History Abdominal Surgery: Yes ( X 2, APPENDECTOMY (THINKS IT OCCURRED WHEN SHE WAS YOUNG)) AICD: No Appendectomy: Yes Body Medical Devices: PINS LEFT FINGER Cardiac Surgery: No Section: Yes Ear Surgery: No Endocrine Surgery: No Eye Surgery: No Genitourinary Surgery: No Gynecologic Surgery: No Joint Replacement: No Oral Surgery: No Pacemaker: No Thoracic Surgery: No Other Surgery: Yes Social History Alcohol Use: No (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) Tobacco Use: Yes Substance Use: Yes (MARIJUANA DAILY ) Allergies-Medications (Allergen,Severity, Reaction): Coded Allergies: No Known Allergies (Unverified Adverse Reaction, Unknown, 09/28/17) Reported Meds & Prescriptions Reported Meds & Active Scripts Active Reported Seroquel (Quetiapine Fumarate) 25 Mg Tab 12.5 Mg PO DAILY Hydroxyzine HCl 10 Mg Tab 10 Mg PO HS PRN Seroquel (Quetiapine Fumarate) 50 Mg Tab 150 Mg PO HS Lamotrigine 25 Mg Tab 25 Mg PO DAILY Trazodone (Trazodone HCl) 100 Mg Tablet 50 Mg PO HS Effexor (Venlafaxine HCl) 100 Mg Tab 150 Mg PO DAILY Review of Systems Except as stated in HPI: all other systems reviewed are Neg Physical Exam Narrative GENERAL: SKIN: Warm and dry. HEAD: Atraumatic. Normocephalic. EYES: Pupils equal and round. No scleral icterus. No injection or drainage. ENT: No nasal bleeding or discharge. Mucous membranes pink and moist. Tongue is midline. No uvula deviation NECK: Trachea midline. No JVD. CARDIOVASCULAR: Regular rate and rhythm. No murmurs, S3, S4. RESPIRATORY: No accessory muscle use. Clear to auscultation. Breath sounds equal bilaterally. GASTROINTESTINAL: Abdomen soft, non-tender, nondistended. Hepatic and splenic margins not palpable. MUSCULOSKELETAL: Extremities without clubbing, cyanosis, or edema. No obvious deformities. Full range of motion of the upper and lower extremities bilaterally. 2+ pulses bilaterally. NEUROLOGICAL: Awake and alert. No obvious cranial nerve deficits. Motor grossly within normal limits. Five out of 5 muscle strength in the arms and legs. Normal speech. PSYCHIATRIC: Depressed mood and affect; insight and judgment normal. Data Data Last Documented VS Vital Signs Date Time Temp Pulse Resp B/P (MAP) Pulse Ox O2 Delivery O2 Flow Rate FiO2 09/28/17 17:48 98.3 93 20 190/81 (117) 98 Orders Orders Complete Blood Count With Diff (09/28/17 17:55) Comprehensive Metabolic Panel (09/28/17 17:55) Thyroid Stimulating Hormone (09/28/17 17:55) Psych Screen (09/28/17 17:55) Drug Screen, Random Urine (09/28/17 17:55) Alcohol (Ethanol) (09/28/17 17:55) Salicylates (Aspirin) (09/28/17 17:55) Tylenol (Acetaminophen) (09/28/17 17:55) Labs Laboratory Tests Test 09/28/17 18:10 White Blood Count 7.3 TH/MM3 Red Blood Count 4.08 MIL/MM3 Hemoglobin 12.6 GM/DL Hematocrit 36.6 % Mean Corpuscular Volume 89.9 FL Mean Corpuscular Hemoglobin 30.9 PG Mean Corpuscular Hemoglobin Concent 34.4 % Red Cell Distribution Width 14.1 % Platelet Count 202 TH/MM3 Mean Platelet Volume 7.7 FL Neutrophils (%) (Auto) 67.0 % Lymphocytes (%) (Auto) 23.9 % Monocytes (%) (Auto) 6.1 % Eosinophils (%) (Auto) 2.2 % Basophils (%) (Auto) 0.8 % Neutrophils # (Auto) 4.9 TH/MM3 Lymphocytes # (Auto) 1.7 TH/MM3 Monocytes # (Auto) 0.4 TH/MM3 Eosinophils # (Auto) 0.2 TH/MM3 Basophils # (Auto) 0.1 TH/MM3 CBC Comment DIFF FINAL Differential Comment Blood Urea Nitrogen 28 MG/DL Creatinine 1.26 MG/DL Random Glucose 115 MG/DL Total Protein 7.9 GM/DL Albumin 4.0 GM/DL Calcium Level 8.8 MG/DL Alkaline Phosphatase 75 U/L Aspartate Amino Transf (AST/SGOT) 20 U/L Alanine Aminotransferase (ALT/SGPT) 18 U/L Total Bilirubin 0.3 MG/DL Sodium Level 138 MEQ/L Potassium Level 3.9 MEQ/L Chloride Level 107 MEQ/L Carbon Dioxide Level 23.1 MEQ/L Anion Gap 8 MEQ/L Estimat Glomerular Filtration Rate 43 ML/MIN Thyroid Stimulating Hormone 3rd Gen 2.940 uIU/ML Salicylates Level 8.9 MG/DL Ethyl Alcohol Level LESS THAN 3 MG/DL MDM Medical Decision Making Medical Screen Exam Complete: Yes Emergency Medical Condition: Yes Medical Record Reviewed: Yes Interpretation(s) CBC & BMP Diagram 09/28/17 18:10 Total Protein 7.9, Albumin 4.0, Calcium Level 8.8, Alkaline Phosphatase 75, Aspartate Amino Transf (AST/SGOT) 20, Alanine Aminotransferase (ALT/SGPT) 18, Total Bilirubin 0.3 Differential Diagnosis Depression versus suicidal ideation versus anxiety versus adjustment disorder versus mood disorder versus bipolar disorder versus schizophrenia versus paranoid disorder versus psychosis versus substance abuse versus alcohol abuse versus alcohol induced psychosis versus homicidality addition versus cutting versus personality disorder Narrative Course 66-year-old female that presents to the ED for evaluation of psych. Patient was properly examined and was found to have signs and symptoms consistent with psychiatric illness. No sign of acute medical distress. Labs were drawn. Patient was medically clear. Okay to be seen by psych. Mental health screening was discussed with the patient. Diagnosis Primary Impression: Bipolar disorder Qualified Codes: F31.32 - Bipolar disorder, current episode depressed, moderate Abhijeet Shannon September 28, 2017 19:15
[2017-09-28 19:28] LABS: ACETAMINOPHEN LESS THAN 2.0 MCG/ML (10.0-30.0)
[2017-09-29 02:16] VITALS: BP 108/61; PULSE 74; RESP 17; O2SAT 99
[2017-09-29 07:08] VITALS: BP 134/62; PULSE 82; RESP 18; O2SAT 99
[2017-09-29] MEDS ORDERED: hydrOXYzine HCL 10 MG TAB PO PRN (08:30)
[2017-09-29] MEDS ORDERED: BENZTROPINE MESYLATE 1 MG TAB PO PRN (08:30)
[2017-09-29] MEDS ORDERED: ALUMINUM/MAGNESIUM/SIMETH 30 ML CUP PO PRN (08:30)
[2017-09-29] MEDS ORDERED: MAGNESIUM HYDROXIDE SUSP 30 ML CUP PO PRN (08:30)
[2017-09-29] MEDS ORDERED: ACETAMINOPHEN 325 MG TAB PO PRN (08:30)
[2017-09-29] MEDS ORDERED: BENZTROPINE MESYLATE 2 MG/2 ML VIAL IM PRN (08:30)
[2017-09-29] MEDS ORDERED: PILL SPLITTER OTHER PRN (08:45)
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
[2017-09-29] MEDS ORDERED: VENLAFAXINE HCL 25 MG TAB PO SCH (09:00)
[2017-09-29] MEDS: NICOTINE 21 MG/24 HR PATCH T-DERMAL SCH (10:00)
[2017-09-29] MEDS: VENLAFAXINE HCL XR 75 MG CAP PO SCH (11:10)
[2017-09-29] MEDS: lamoTRIgine 25 MG TAB PO SCH (11:10)
[2017-09-29] MEDS: QUEtiapine FUMARATE 25 MG TAB PO SCH ×2 (11:11→22:12)
[2017-09-29 15:17] VITALS: BP 159/86; PULSE 74; O2SAT 100
[2017-09-29] MEDS ORDERED: QUEtiapine FUMARATE 100 MG TAB PO SCH (21:00)
[2017-09-29] MEDS: QUEtiapine FUMARATE 300 MG TAB PO SCH (22:11)
[2017-09-29] MEDS: traZODone HCL 50 MG TAB PO SCH (22:12)
[2017-09-30 06:36] VITALS: BP 110/54; PULSE 73; RESP 16; TEMP 98; O2SAT 96
[2017-09-30 08:51] LABS: BLOOD UREA NITROGEN 30 MG/DL (7-18); CALCIUM 9.2 MG/DL (8.5-10.1); CHLORIDE 109 MEQ/L (98-107); CHOLESTEROL 187 MG/DL (120-200); CHOLESTEROL/ HDL RATIO 4.04 RATIO; CREATININE 1.05 MG/DL (0.50-1.00); GLOMERULAR FILTRATION RATE 53 ML/MIN (>89); GLUCOSE,RANDOM 88 MG/DL (74-106); HDL CHOLESTEROL 46.2 MG/DL (40.0-60.0); LDL CHOLESTEROL 115 MG/DL (0-99); SODIUM (NA) 144 MEQ/L (136-145); TRIGLYCERIDES 128 MG/DL (42-150)
[2017-09-30] MEDS: REMOVE OLD PATCH T-DERMAL SCH (09:00)
[2017-09-30] MEDS: lamoTRIgine 25 MG TAB PO SCH (09:27)
[2017-09-30] MEDS: QUEtiapine FUMARATE 25 MG TAB PO SCH ×2 (09:28→21:12)
[2017-09-30] MEDS: VENLAFAXINE HCL XR 75 MG CAP PO SCH (09:28)
[2017-09-30] MEDS: NICOTINE 21 MG/24 HR PATCH T-DERMAL SCH (09:30)
--- NOTE | 2017-09-30 13:32 | HHI.PYPN ---
Subjective Remarks Patient was seen and case discussed with nursing. Patient describes a "family crisis" that is largely contributing to her suicidal ideation. Before this incident she feels that her medication was working well for her. Today she is inquisitive and cooperative with the interview. She says she does feel depressed but she denies suicidal or homicidal ideation intent or plan. There are no signs of case. Tolerating medications well. Social with others. Mental Status Examination Appearance: Appropriate Consciousness: Alert Orientation: x4 Motor Activity: Normal gait Speech: Unremarkable Language: Adequate Fund of Knowledge: Adequate Attention and Concentration: Adequate Memory: Unremarkable Mood: Sad Affect: Appropriate Thought Process & Associations: Intact Thought Content: Appropriate Hallucination Type: Auditory Delusion Type: None Suicidal Ideation: No Suicidal Plan: No Suicidal Intention: No Homicidal Ideation: No Homicidal Plan: No Homicidal Intention: No Insight: Fair Judgment: Impulsive Results Labs Test 09/30/17 07:50 Blood Urea Nitrogen 30 MG/DL Creatinine 1.05 MG/DL Random Glucose 88 MG/DL Calcium Level 9.2 MG/DL Sodium Level 144 MEQ/L Potassium Level 4.7 MEQ/L Chloride Level 109 MEQ/L Carbon Dioxide Level 29.0 MEQ/L Anion Gap 6 MEQ/L Estimat Glomerular Filtration Rate 53 ML/MIN Triglycerides Level 128 MG/DL Cholesterol Level 187 MG/DL LDL Cholesterol 115 MG/DL HDL Cholesterol 46.2 MG/DL Cholesterol/HDL Ratio 4.04 RATIO Vitals/IOs Vital Signs Date Time Temp Pulse Resp B/P (MAP) Pulse Ox O2 Delivery O2 Flow Rate FiO2 09/30/17 06:36 98.0 73 16 110/54 (72) 96 09/29/17 07:08 Room Air Intake and Output 09/30/17 09/30/17 10/01/17 08:00 16:00 00:00 Intake Total 480 ml Balance 480 ml Assessment & Plan Problem List: (1) Bipolar disorder ICD Codes: F31.9 - Bipolar disorder, unspecified Status: Acute Assessment & Plan Continue current treatment plan Justification for Cont. Inpt. Patient would decompensate in a less restrictive setting Problem Qualifiers (1) Bipolar disorder: Qualified Codes: F31.32 - Bipolar disorder, current episode depressed, moderate Florentin Cornejo DO September 30, 2017 13:32
[2017-09-30 18:10] VITALS: BP 112/61; PULSE 78; RESP 18; TEMP 97.7; O2SAT 99
[2017-09-30] MEDS: traZODone HCL 50 MG TAB PO SCH (21:11)
[2017-09-30] MEDS: QUEtiapine FUMARATE 300 MG TAB PO SCH (21:12)
[2017-10-01 05:29] VITALS: BP 90/51; PULSE 79; RESP 16; TEMP 97.7; O2SAT 97
[2017-10-01] MEDS: lamoTRIgine 25 MG TAB PO SCH (08:18)
[2017-10-01] MEDS: QUEtiapine FUMARATE 25 MG TAB PO SCH ×2 (08:19→20:48)
[2017-10-01] MEDS: VENLAFAXINE HCL XR 75 MG CAP PO SCH (08:19)
[2017-10-01] MEDS: REMOVE OLD PATCH T-DERMAL SCH (08:22)
[2017-10-01] MEDS: NICOTINE 21 MG/24 HR PATCH T-DERMAL SCH (08:22)
--- NOTE | 2017-10-01 12:26 | HHI.PYPN ---
Subjective Remarks Patient was seen and case discussed with nursing. Today patient is fixated on another nurse and is demanding an apology from said nurse. Somewhat elevated and entitled per nursing. Patient says she continues to feel hopeless towards the future. Her affect though is irritable. Denies suicidal or homicidal ideation intent or plan. Sleeping better. Mood is 4 out of 10 Mental Status Examination Appearance: Appropriate Consciousness: Alert Orientation: x4 Motor Activity: Normal gait Speech: Unremarkable Language: Adequate Fund of Knowledge: Adequate Attention and Concentration: Adequate Memory: Unremarkable Mood: Sad Affect: Irritable Thought Process & Associations: Intact Thought Content: Appropriate Hallucination Type: Auditory Delusion Type: None Suicidal Ideation: No Suicidal Plan: No Suicidal Intention: No Homicidal Ideation: No Homicidal Plan: No Homicidal Intention: No Insight: Fair Judgment: Impulsive Results Vitals/IOs Vital Signs Date Time Temp Pulse Resp B/P (MAP) Pulse Ox O2 Delivery O2 Flow Rate FiO2 10/01/17 05:29 97.7 79 16 90/51 (64) 97 09/29/17 07:08 Room Air Assessment & Plan Problem List: (1) Bipolar disorder ICD Codes: F31.9 - Bipolar disorder, unspecified Status: Acute Assessment & Plan Continue current treatment plan Justification for Cont. Inpt. Patient would decompensate in a less restrictive setting Problem Qualifiers (1) Bipolar disorder: Qualified Codes: F31.32 - Bipolar disorder, current episode depressed, moderate Florentin Cornejo DO October 01, 2017 12:26
--- NOTE | 2017-10-01 12:27 | EKG ---
Date Performed: 09/30/2017 Time Performed: 14:54:56 PTAGE: 66 years EKG: Sinus rhythm NORMAL ECG PREVIOUS TRACING : 09/02/2017 18.58 Since the previous tracing, no significant change noted DOCTOR: Faizan Young Interpretating Date/Time 10/01/2017 12:26:36
[2017-10-01 13:20] LABS: HEMOGLOBIN A1C 5.1 % (4.3-6.0)
[2017-10-01 17:43] VITALS: BP 149/72; PULSE 81; RESP 16; TEMP 97.8; O2SAT 97
[2017-10-01] MEDS: QUEtiapine FUMARATE 300 MG TAB PO SCH (20:48)
[2017-10-01] MEDS: traZODone HCL 50 MG TAB PO SCH (20:48)
[2017-10-02 06:20] VITALS: BP 83/51; PULSE 74; RESP 16; TEMP 97.8; O2SAT 97
[2017-10-02 07:19] VITALS: BP 99/55; PULSE 77
[2017-10-02] MEDS: lamoTRIgine 25 MG TAB PO SCH (08:25)
[2017-10-02] MEDS: QUEtiapine FUMARATE 25 MG TAB PO SCH (08:25)
[2017-10-02] MEDS: NICOTINE 21 MG/24 HR PATCH T-DERMAL SCH (08:25)
[2017-10-02] MEDS: VENLAFAXINE HCL XR 75 MG CAP PO SCH (08:25)
[2017-10-02] MEDS: REMOVE OLD PATCH T-DERMAL SCH (08:26)
[2017-10-02] MEDS ORDERED: SERO50TA PO (10:08)
--- NOTE | 2017-10-02 10:08 | HHI.DS ---
Psychiatry Discharge Summary Inpatient Psychiatric care?: Yes Advance Directive: No Reason Not Provided: Due to Patient Condition Mental Health AdvanceDirective: No Health Care Proxy: No Admission Admission Date September 29, 2017 at 08:19 Admission Diagnosis: (1) Bipolar disorder ICD Code: F31.9 - Bipolar disorder, unspecified Brief History Ms. Louise is a 66-year-old female with a reported history of bipolar disorder who presents voluntarily for psychiatric evaluation. She told the ED provider that she has been feeling increasingly depressed for the last 2 months. She has been compliant with medications per report. Her outpatient psychiatrist reportedly recommended that she present for psychiatric admission. Reviewing the electronic medical record, I note that the patient was seen by the psychiatric nurse practitioner about a month ago for suicidal ideation and was discharged from the ED at that time. The patient seen and examined. Chart reviewed. Case discussed with nursing staff. On my examination today, the patient reports that her mood is increasingly depressed despite medication adherence. She is quite tearful and withdrawn. She appears fairly anhedonic. She endorses hopelessness and says "there does not seem to be anything to look forward to." She endorses suicidal ideation at this point without specific plan or intent and denies any urge to hurt herself on the inpatient psychiatric unit. She complains of feeling anxious "all the time." Appetite is poor. She reports social withdrawal and says, "I don't even leave the porch." She denies any audiovisual hallucinations. I can elicit no delusional beliefs. There is no evidence of impairment in reality construction at this time. The remainder of the psychiatric ROS is negative. No acute physical complaints. Tobacco Use In Past 30 Days: 5 or More Cigarettes/Day Alcohol Use: Never Hospital Course Patient was admitted to a locked, inpatient psychiatric unit. Appropriate precautions were in place throughout patient's hospital stay. Patient was seen and examined on the unit by psychiatry and also visited by counselor. Psychotropic medications were adjusted. Patient tolerated medication changes well without side effects. There was no evidence of suicidality or homicidality on the inpatient unit. There was no evidence of self-care deficit. Patient was compliant with medications. She was noted by staff to be demanding, entitled and disrespectful towards other patients and staff. She has completed a right of release. On the day of discharge: Patient seen and examined with nurse. Chart reviewed. Case discussed with counselor and nurse. On my examination today, patient continues to request discharge from the inpatient unit today. She reports that she feels aggrieved because she noted that there was a group listed on the schedule of activities over the weekend that was not conducted as scheduled, and she wishes to leave for this reason. Inflexibility and preoccupation with rules and order noted. She denies any suicidal or homicidal ideation, intent or plan and contracts for safety. Affect remains somewhat dysphoric and a little irritable, but with the benefit of further observation I suspect that this has its root in personality disorder traits (obsessive-compulsive, chiefly). I no longer suspect and apprehend no symptoms of a severely unstable depressive or hypomanic/manic episode at this time. She denies audiovisual hallucinations, and I can elicit no delusional beliefs. There is no evidence of any impairment in reality construction. She denies side effects from medications. She has no physical complaints. Weighing the relevant factors and based on the available evidence, I occupational safety and health manager that the patient does not meet criteria for involuntary psychiatric hospitalization at this time. There is no evidence of imminent risk of harm to self or others, nor is there any evidence of self-care deficit that would necessitate ongoing hospitalization. The patient is requesting discharge from the inpatient psychiatric unit today, and I have no basis to retain her over her objection. Psychiatric follow-up as arranged by counselor. Patient is also to follow up with primary care. I have counseled the patient to return to the psychiatric emergency room for any concerning symptoms as part of a general safety plan. Results Blood Pressure 99 / 55 Vital Signs Date Time Temp Pulse Resp B/P (MAP) Pulse Ox O2 Delivery O2 Flow Rate FiO2 10/02/17 07:19 77 99/55 (70) 10/02/17 06:20 97.8 16 97 09/29/17 07:08 Room Air Laboratory Tests Test 09/30/17 07:50 Blood Urea Nitrogen 30 MG/DL (7-18) Creatinine 1.05 MG/DL (0.50-1.00) Chloride Level 109 MEQ/L (98-107) Estimat Glomerular Filtration Rate 53 ML/MIN (>89) LDL Cholesterol 115 MG/DL (0-99) Laboratory Results Test 09/30/17 07:50 Cholesterol Level 187 MG/DL (120-200) HDL Cholesterol 46.2 MG/DL (40.0-60.0) Hemoglobin A1c 5.1 % (4.3-6.0) LDL Cholesterol 115 MG/DL (0-99) Triglycerides Level 128 MG/DL (42-150) Summary of Procedures None done Imaging None done Pending results at discharge: No Medications # of Antipsychotic meds at D/C: 1 Approp Antipsych med options 1 - Minimum of three failed multiple trials of monotherapy. 2 - Documented plan to taper to monotherapy due to previous use of multiple meds OR cross-taper in progress at D/C. 3 - Documentation of augmentation of Clozapine. 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 Continued Medications: Hydroxyzine HCl (Hydroxyzine HCl) 10 Mg Tab 10 MG PO HS PRN for ANXIETY, TAB 0 Refills Lamotrigine (Lamotrigine) 25 Mg Tab 25 MG PO DAILY for Control Seizures, #30 TAB 0 Refills Quetiapine (Seroquel) 25 Mg Tab 12.5 MG PO DAILY, #30 TAB 0 Refills Trazodone (Trazodone) 100 Mg Tablet 50 MG PO HS for Control Depression, #30 TAB 0 Refills Venlafaxine (Effexor) 100 Mg Tab 150 MG PO DAILY, #90 TAB 0 Refills Discharge Time <= 30 minutes Mental Status Examination Appearance: Appropriate Consciousness: Alert Orientation: x4 Motor Activity: Normal gait, Other (No motor abnormalities noted) Speech: Unremarkable Language: Adequate Fund of Knowledge: Adequate Attention and Concentration: Adequate Memory: Unremarkable Mood: Other (Mildly irritable and dysphoric) Affect: Other (Consistent with mood) Thought Process & Associations: Intact, Logical, Goal directed, Linear Thought Content: Appropriate Hallucination Type: None Delusion Type: None Suicidal Ideation: No Suicidal Plan: No Suicidal Intention: No Homicidal Ideation: No Homicidal Plan: No Homicidal Intention: No Mental Status Exam Remarks Insight and judgment are perhaps fair. Discharge/Advance Care Plan Health Problems: (1) Bipolar disorder Goals to promote your health * To prevent worsening of your condition and complications * To maintain your health at the optimal level Directions to meet your goals Take your medications as prescribed Follow your dietary instruction Follow activity as directed Keep your appointments as scheduled Take your immunizations and boosters as scheduled If your symptoms worsen call your PCP, if no PCP go to Urgent Care Center or Emergency Room For 19/12 questions related to your inpatient stay or results of tests pending at discharge, please contact Dr. Daniel Velasquez at Smoking is Dangerous to Your Health. Avoid second hand smoking Problem Qualifiers (1) Bipolar disorder: Qualified Codes: F31.4 - Bipolar disorder, current episode depressed, severe, without psychotic features Daniel Velasquez MD October 02, 2017 10:08
== END 2017-10-02 14:25 | disposition home or self-care (01) | DRG 881 ==
LOC: NEPC 17:41 → NEDA 09-29 08:19 → H260 09-29 09:45
PROVIDERS: ADMIT Psychiatry & Neurology Psychiatry; ATTEND Psychiatry & Neurology Psychiatry
DX: F43.21 Adjustment disorder with depressed mood (principal); R45.851 Suicidal ideations; N18.3 Chronic kidney disease, stage 3 (moderate); F60.5 Obsessive-compulsive personality disorder; Z91.5 Personal history of self-harm; F12.90 Cannabis use, unspecified, uncomplicated; Z79.899 Other long term (current) drug therapy; F17.210 Nicotine dependence, cigarettes, uncomplicated
CPT/HCPCS: 80048; 80053; 80061; 80307; 83036; 84443; 85025; 93005